=== PATIENT | female | born 1990 | race Caucasian/White ===

== ENCOUNTER → 2019-08-24 | Outpatient (CLI) | payer BC ==
[2019-08-24 12:18] LABS: Glucose 2 Hour 109 mg/dL
== END | disposition home or self-care (01) ==
LOC: LABWHC1 08:24
PROVIDERS: ATTEND Otolaryngology
DX: R42 Dizziness and giddiness (principal)
CPT/HCPCS: 36415; 82947; 82950

== ENCOUNTER → 2023-05-31 | Outpatient (CLI) | payer BC ==
--- NOTE | 2023-05-31 09:41 | MM ---
Reason for Exam: Clinical finding. Patient History: Menarche at age 12. Patient has no children. Hormonal Contraceptives for 4 years from age 15 until age 19. Tissue Density: The breast tissue is heterogeneously dense. This may lower the sensitivity of mammography. Findings: Analyzed By CAD. Well-circumscribed masses are seen bilaterally on the right 12:00 position as well as the right 1:00 position. At the left 12:00 position smoothly marginated masses seen. At the site of clinical concern no distinct abnormality is appreciated. No suspicious calcifications present. Overall Assessment: Incomplete: need additional imaging evaluation, BI-RAD 0 Management: Diagnostic Breast Ultrasound of both breasts. . Results were given to the patient verbally at the time of exam. Patient should continue monthly self-breast exams. A clinical breast exam by your physician is recommended on an annual basis. This exam should not preclude additional follow-up of suspicious palpable abnormalities. Note on Vandana scores and lifetime risk: 1. A Vandana score greater than 3% is considered moderate risk. If this is the case, consider specialist referral to assess eligibility for a risk reducing agent. 2. If overall lifetime risk for the development of breast cancer is 20% or higher, the patient may qualify for future screening with alternating mammogram and breast MRI. Electronically signed and approved by: Glen Hamm M.D. Radiologis
--- NOTE | 2023-05-31 09:54 | USB ---
Reason for Exam: Clinical finding. Patient History: Menarche at age 12. Patient has no children. Hormonal Contraceptives for 4 years from age 15 until age 19. Technique: Method: Targeted. Findings: The upper section of the breast of the right breast, the lateral section of the breast of the left breast, the axilla of both breasts and the retroareolar of both breasts were scanned. Simple cysts are noted bilaterally. Right 11:00 position 1.5 x 1.1 cm. Right 12:00 1.6 x 0.7 cm. Right 1:00 0.4 cm x 0.7 cm. No solid masses seen. Within the left breast at 12:00 there is a 2.3 x 1.0 cm cyst. At the site of clinical concern there is no solid or cystic lesion seen. I do recommend clinical management. Overall Assessment: Benign, BI-RAD 2 Management: Screening Mammogram of both breasts at age 38. A clinical breast exam by your physician is recommended on an annual basis and results should be correlated with mammographic findings. This exam should not preclude additional follow-up of suspicious palpable abnormalities. Results were given to the patient verbally at the time of exam. Electronically signed and approved by: Glen Hamm M.D. Radiologis
== END | disposition home or self-care (01) ==
LOC: RADMAMWWP 08:16
PROVIDERS: ATTEND Obstetrics & Gynecology
DX: N60.01 Solitary cyst of right breast (principal); N60.02 Solitary cyst of left breast; N64.4 Mastodynia
CPT/HCPCS: 77062; 77066

== ENCOUNTER → 2023-07-26 | Outpatient (CLI) | payer BC ==
[2023-07-26 11:38] VITALS: BP 129/75; PULSE 70; RESP 16; TEMP 98.2
--- NOTE | 2023-07-26 12:19 | P.GSHP ---
History of Present Illness H&P Date: 07/26/23 Chief Complaint: breast pain Millie is a 33 year old white female seen in consultation for DR. Del Cid regarding breast pain. She had a bilateral mammogram and bilateral ultrasounds done on 05-31-23 which were BIRAD 2. She had bilateral breast cyst. She has lateral left breast pain, greater at the time of her period. Her periods are regular. She is not complaining of any abnormal nipple discharge. Does not complain of any recent trauma or infection in her breast. She's never had any surgery on her breast. She did note some new increased nodularity in the lateral aspect of the left breast over the last several months. This hasn't changed. Note Dr. Caballero 04-19-23 reviewed caffiene: 1-2 cups/day nicotine: stopped in December, used to smoke 15 cigarettes/day for 10 years chocolate: occasional BCP: used in past stopped at 19 Family History: paternal grandparents, mother and grandfather: Lung cancer grandmother smoker paternal aunt: esophageal cancer Hormonal History: menarche: 12 G0 LMP: 2022 Surgical History: wisdom teeth Medical History: Scarlet fever as a baby Social history: Nicotine: As above Alcohol: Weekends Drugs: Negative - Constitutional Constitutional: Denies chills, Denies fever - EENT Eyes: denies blurred vision, denies pain Ears: deny: decreased hearing, tinnitus Ears, nose, mouth and throat: Denies headache, Denies sore throat - Breasts Breasts: bilateral: as per HPI - Cardiovascular Cardiovascular: Denies chest pain, Denies shortness of breath - Respiratory Respiratory: Denies cough, Denies 7 - Gastrointestinal Gastrointestinal: Denies abdominal pain, Denies diarrhea, Denies nausea, Denies vomiting - Genitourinary (Female) Genitourinary: Denies dysuria, Denies hematuria - Menstruation Menstruation: Reports period normal - Musculoskeletal Musculoskeletal: Denies myalgias - Integumentary Integumentary: Denies pruritus, Denies rash - Neurological Neurological: Denies numbness, Denies weakness - Psychiatric Psychiatric: Denies anxiety, Denies depression - Endocrine Endocrine: Denies fatigue, Denies weight change - Hematologic/Lymphatic Comment: none - Allergic/Immunologic Allergic/Immunologic: Reports seasonal allergies Past Medical History History of Any Multi-Drug Resistant Organisms: None Reported Smoking Status: Former smoker Medications and Allergies Home Medications Medication Instructions Recorded Confirmed Type No Known Home Medications 07/26/23 07/26/23 History Allergies Allergy/AdvReac Type Severity Reaction Status Date / Time No Known Allergies Allergy Unverified 07/26/23 11:29 Surgical - Exam Vital Signs Temp Pulse Resp BP Pulse Ox 98.2 F 70 16 129/75 98 07/26/23 11:30 07/26/23 11:30 07/26/23 11:30 07/26/23 11:30 07/26/23 11:30 - General no distress - Eyes normal ocular movement - ENT no hearing loss - Neck trachea midline - Respiratory normal respiratory effort, clear to auscultation - Cardiovascular Rhythm: regular Heart Sounds: normal: S1, S2 - Abdomen Abdomen: soft, non tender, no guarding, no rigid, no rebound - Integumentary normal turgor - Neurologic no disoriented, no combative - Musculoskeletal normal gait - Psychiatric oriented to time, oriented to person, oriented to place, speech is normal, memory intact Breast Exam: BRA: 34B Inspection: Bilateral grade 1/2 ptosis; right breast is slightly larger than left breast Palpation: Right breast: Multi-positional exam fibrocystic changes no dominant masses or nodules of concern Right axilla: No adenopathy of concern Left breast: Multi-positional exam no dominant masses or nodules of concern Left axilla: No adenopathy of concern Results Mammogram and ultrasound results reviewed Assessment and Plan Assessment: Impression: Fibrocystic breast disease Clinical breast pain most likely related to menstrual. Fibrocystic breast discomfort may be related to caffeine intake Nothing which would warrent interventional biopsy at this time Plan: bilateral mammogram at the age of 38 Bilateral breast ultrasound in 1 year if any concerns Follow-up one year for examination Discussed lifestyle modification secondary to the caffeine and the patient is going to consider this. Patient given a book on breast pain The patient has recently got in there would like to get in the near future and at this time there is nothing which would cause any concerns at with respect to her breast for this to happen. Cc: Dr. Caballero
== END ==
LOC: WWCWWP 10:56
PROVIDERS: ATTEND Surgery
DX: N60.11 Diffuse cystic mastopathy of right breast (principal); N63.20 Unspecified lump in the left breast, unspecified quadrant; N64.4 Mastodynia; Z87.891 Personal history of nicotine dependence